=== PATIENT | male | born 1960 | race Two or more races ===

== ENCOUNTER 2020-12-03 09:00 | Outpatient (REF) | payer OTHER, SELFPAY ==
--- NOTE | ~2020-12-03 | XR_ITS ---
EXAMINATION: LEFT SHOULDER AND RIGHT HAND. CLINICAL INFORMATION: Pain. COMPARISON: None TECHNIQUE: Left shoulder 4 views. Right hand 3 views. FINDINGS: Left shoulder: There is no visible acute fracture, dislocation or subluxation seen. There is mild inferior.) Left AC joint. The soft tissues are normal. Right hand: There is no visible acute fracture, dislocation subluxation. The PIP, DIP and MCP joint spaces are maintained normal. No bony erosive changes seen. No visible fracture or loose bodies. The soft tissues are normal. XR/XR shoulder LT min 2V IMPRESSION: Mild degenerative changes left AC joint. Unremarkable right hand exam.
--- NOTE | ~2020-12-03 | XR_ITS ---
EXAMINATION: LEFT SHOULDER AND RIGHT HAND. CLINICAL INFORMATION: Pain. COMPARISON: None TECHNIQUE: Left shoulder 4 views. Right hand 3 views. FINDINGS: Left shoulder: There is no visible acute fracture, dislocation or subluxation seen. There is mild inferior.) Left AC joint. The soft tissues are normal. Right hand: There is no visible acute fracture, dislocation subluxation. The PIP, DIP and MCP joint spaces are maintained normal. No bony erosive changes seen. No visible fracture or loose bodies. The soft tissues are normal. XR/XR hand RT min 3V IMPRESSION: Mild degenerative changes left AC joint. Unremarkable right hand exam.
[2020-12-03 10:01] LABS: MANUAL DIFF FLAG NO
[2020-12-03 10:03] LABS: Basophils Percent Auto 0.6 % (0-2); Eosinophils Absolute Auto 0.3 X10*3/uL (0.0-0.4); Eosinophils Percent Auto 3.8 % (0-4); Hematocrit 43.4 % (42-52); Imm Gran Abs Auto 0.02 X10*3/uL (0.00-0.03); Imm Gran Pct Auto 0.3 % (0.0-0.4); Lymphocytes Absolute Auto 2.7 X10*3/uL (1.2-4.9); Lymphocytes Percent Auto 39.1 % (20-40); Mean Corpuscular HGB Conc 34.6 g/dl (31.0-36.0); Mean Corpuscular Hemoglobin 30.6 pg (27.0-33.0); Mean Corpuscular Volume 88.6 fL (80-98); Mean Platelet Volume 10.6 fL (9.4-12.4); Monocytes Absolute Auto 0.6 X10*3/uL (0.1-1.2); Neutrophils Absolute Auto 3.2 X10*3/uL (2.0-8.3); Neutrophils Percent Auto 47.2 % (45-73); Platelet Count 246 X10*3/uL (160-400); Red Cell Distribution Width 12.2 % (11.0-16.0); White Blood Count 6.8 X10*3/uL (4.8-10.8)
[2020-12-03 10:30] LABS: Alanine Aminotransferase 25 U/L (0-40); Albumin Level 4.3 g/dL (3.5-5.0); Alkaline Phosphatase 74 U/L (39-117); Anion Gap 13 (12-20); Aspartate Amino Transferase 29 U/L (5-37); Bilirubin Total 0.9 mg/dL (0.0-1.0); Blood Urea Nitrogen 15 mg/dL (9-16); Calcium 9.2 mg/dL (8.4-10.2); Carbon Dioxide 27 mmol/L (22-29); Chloride 106 mmol/L (96-108); Cholesterol 286 mg/dL; Estimated Glomerular Filt Rate > 60; Glucose Random 93 mg/dL (60-115); HDL Cholesterol 46 mg/dL; LDL Cholesterol Calculated 191 mg/dl; Potassium 4.4 mmol/L (3.3-5.1); Sodium 142 mmol/L (135-145); Total Protein 7.1 g/dL (6.5-8.0); Triglycerides 247 mg/dL
== END 2020-12-03 09:01 | disposition home or self-care (01) ==
LOC: HO.LAB 09:00
PROVIDERS: PCP Internal Medicine; Visit Provider Internal Medicine
DX: Z00.00 Encounter for general adult medical examination without abnormal findings (principal); Z12.5 Encounter for screening for malignant neoplasm of prostate; M25.511 Pain in right shoulder; M79.641 Pain in right hand
CPT/HCPCS: 36415; 73030; 73130; 80053; 80061; 84153; 85025

== ENCOUNTER → 2021-03-01 14:48 | Outpatient (BNVA) | payer OTHER, SELFPAY | PROVIDERS: PCP Internal Medicine; Visit Provider Physician Assistant | DX: M75.102 Unspecified rotator cuff tear or rupture of left shoulder, not specified as traumatic (principal) | CPT/HCPCS: J1040 ==

== ENCOUNTER 2021-03-18 07:33 | Day surgery (SDC) | payer OTHER, SELFPAY ==
[2021-03-18 07:50] VITALS: BP 132/84; PULSE 72; RESP 16; TEMP 36.9; O2SAT 97; BMI 31.3
--- NOTE | 2021-03-18 08:24 | P.CONAN_ITS ---
[facility] Active Problems Active Problems: All Active Problems (Updated 03/14/21 @ 15:18 by Bhavana nicholson, RN) Painful arc syndrome of left shoulder (Acute) Past Medical History Medical History (Updated 03/14/21 @ 15:18 by Bhavana Cooper, RN) Hyperlipidemia Left shoulder pain Cognitive capacity: grrr Surgical History Surgical History (Updated 03/14/21 @ 15:18 by Bhavana Cooper, RN) Hx of colonoscopy History of Problems with Anesthesia: No Social History Social History (Updated 03/01/21 @ 15:10 by Jean Thibodeaux) Patient Tobacco Use Status: Never used Tobacco Use of substances other than those prescribed or required for medical reasons: No Are you DNR?: No Advance Directives: No Advance Directives Information Provided: Yes Recently lost weight without trying: No Nutrition Risks: No Nutritional Risk Poor oral hygiene: No Current occupational status: employed 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 Meds Allergies Allergy/AdvReac Type Severity Reaction Status Date / Time No Known Allergies Allergy Verified 03/14/21 15:18 Active Medications: Current Medications Sodium Biphosphate/Sodium Phosphate (Sodium Phosphate,Swain-Dibasic 133 Ml Enema) 133 ml NC ONCE PRN PRN Reason: Poor Colonoscopy Prep Results Home Medications Medication Instructions Recorded Confirmed Last Taken Type atorvastatin 10 mg tablet 1 tab PO BEDTIME 03/14/21 03/14/21 Unknown History ibuprofen 600 mg tablet 600 mg PO TID PRN 03/14/21 03/14/21 Unknown History Exam Exam Date and Time: March 18, 2021 0824 Height,Weight and Vital Signs: Height 5 ft 7 in Weight 90.718 kg Last Vital Signs Temp 98.5 F 03/18/21 07:50 Pulse 72 03/18/21 07:50 Resp 16 03/18/21 07:50 BP 132/84 03/18/21 07:50 Pulse Ox 97 03/18/21 07:50 Airway Mallampati Class: II TM Dist: >3cm Neck ROM: Full Loose/Missing/Broken Teeth: No Heart: RRR Lungs: CTA Assessment and Plan Assessment Anesthesia Assessment: Anesthesia Plan Discussed and Chart Reviewed Final Anesthetic Review History of Problems with Anesthesia: No NPO: Yes ASA Class: II Final Preanesthetic Review: Meds/Allgs Chart Reviewed, Consent Obtained/Reviewed and Anes Risks/Benef Reviewed Patient Risk: Low Procedure Risk: Low Anesthetic Plan Anesthetic Plan: MAC: Disposition: Standard PACU
[2021-03-18 09:31] VITALS: BP 109/73; PULSE 65; RESP 16; TEMP 36.8; O2SAT 99
--- NOTE | 2021-03-18 09:31 | PM.OP ---
Brief Operative Note Date of Service: 03/18/21 Pre-op diagnosis: Screening Post-op diagnosis: other (Colon polyps) Procedure: Colonoscopy to the cecum with snare polypectomy, and bx/removal of polyps Surgeon: Doron Sneed Anesthesia: MAC Was an Investigative Research Specialist used for this Procedure?: No Estimated blood loss (mL): 3.0 Pathology: other (A. Rectal polyp B. Transverse colon polyp C. Polyp at 50cm) Condition: stable Disposition: PACU
[2021-03-18 09:46] VITALS: BP 117/81; PULSE 65; RESP 16; TEMP 36.8; O2SAT 100
--- NOTE | 2021-03-18 10:10 | OP_ITS ---
SURGEON: Doron Sneed MD INDICATIONS: The patient presents for evaluation of colorectal cancer screening. Full consent has been obtained from him for this, including risks of bleeding and perforation. PREOPERATIVE DIAGNOSIS: Colorectal cancer screening. POSTOPERATIVE DIAGNOSIS: PROCEDURE PERFORMED: ESTIMATED BLOOD LOSS: COMPLICATIONS: ANESTHESIA: Medication used, monitored anesthesia care. ASSISTANTS: SPECIMENS: POSTOPERATIVE DIAGNOSES: Colorectal cancer screening, colon polyps, diverticulosis, internal and external hemorrhoids. PROCEDURES PERFORMED: Colonoscopy to cecum with snare polypectomy and biopsy and removal of polyps. DESCRIPTION OF PROCEDURE: The patient was placed in the left lateral decubitus position. The digital rectal exam revealed external hemorrhoids. The Olympus video pediatric colonoscope was entered into the rectum and advanced to the cecum with the assistance of abdominal wall pressure. Once in the cecum, I did identify normal-appearing cecal pouch with appendiceal orifice and a normal-appearing ileocecal valve. The entire cecum and ileocecal valve appeared normal. The scope was then slowly withdrawn assessing all mucosal surfaces carefully. Preparation was excellent. In the transverse colon was an approximately 1.5 cm polyp on a short stalk, which was snared and recovered with the retrieval net. The scope was withdrawn from the patient. The scope was then readvanced back to the polypectomy site, which appeared clean, without any sign of residual polyp nor bleeding. At 50 cm was an approximately 4 mm polyp, which was biopsied and completely removed with cold biopsy forceps. In the rectum was a flat approximately 3 mm polyp, which was biopsied and completely removed with cold biopsy forceps. I did not visualize any other polyps, colitis, nor angiodysplasia. There was a mild amount of sigmoid diverticulosis. In the rectum, scope was retroflexed visualizing internal hemorrhoids, but no other pathology. The rectal mucosa appeared normal. The scope was straightened out and withdrawn from the patient. He tolerated the procedure well and was returned to the recovery area in stable condition. IMPRESSION: 1. Colon polyps, status post snare polypectomy, and biopsy removal. 2. Diverticulosis. 3. Internal and external hemorrhoids. PLAN: The results of the pathology will be checked. Given the larger polyp that was removed, I would recommend a repeat colonoscopy in 3 years for further screening and surveillance. He was advised not to use any aspirin and NSAIDs for 1 week. He will otherwise see me on a p.r.n. basis. MD NABEEL Ashton/TARA / [phone]
== END 2021-03-18 10:15 | disposition home or self-care (01) ==
PROVIDERS: PCP Internal Medicine; Visit Provider Internal Medicine
PROC: 0DJD8ZZ Inspection of Lower Intestinal Tract, Via Natural or Artificial Opening Endoscopic (ICD-10-PCS; CPT 45378; principal; 2021-03-18 09:10)
DX: Z12.11 Encounter for screening for malignant neoplasm of colon (principal); D12.3 Benign neoplasm of transverse colon; D12.6 Benign neoplasm of colon, unspecified; K62.1 Rectal polyp; K57.30 Diverticulosis of large intestine without perforation or abscess without bleeding; K64.8 Other hemorrhoids; K64.4 Residual hemorrhoidal skin tags
CPT/HCPCS: 45385; 45380; 88305; J2405; J2765

== ENCOUNTER → 2021-05-03 09:28 | Outpatient (BNVA) | payer OTHER, SELFPAY | PROVIDERS: PCP Internal Medicine; Visit Provider Physician Assistant ==

== ENCOUNTER 2021-06-16 11:00 | Outpatient (RCR) | payer OTHER, SELFPAY ==
--- NOTE | 2021-05-10 14:08 | MHC.PT.EP ---
[facility] [place] Office [place] Office [place] Office [address] [place] [address] [phone] F: [phone] F: [phone] F: [phone] F: [phone] Physical Therapy Plan of Care Date of Evaluation: Date of Surgery: N/A Diagnosis: rotator cuff tear, rupture Assessment: pt's signs and symptoms consistent w/ potential minimal RTC tearing, suspicious for subscapularis given greatest pain provocation w/ internal rotation vs. SAPS. pt presents to physical therapy with pain, decreased range of motion, decreased strength, impaired functional mobility, impaired postural awareness, and gait deviations. pt is a good candidate for skilled PT due to age, potential remediation of impairments, typical disease/condition progression and prognosis, comorbidities, and motivation. pt would benefit from tailored strengthening and stretching exercise program, functional training, gait training, postural re-training, neuromuscular re-education, modalities as needed for pain, equipment safety demonstration. Frequency and Duration: The patient will be seen 2x/wk for 4 wks Short Term Goals: pt will be I w/ HEP to promote self-management of condition. pt will demo proper sitting posture w/ lumbar roll to promote neutral spine and GH joint positioning w/ seated ADLs. Correction Goals: pt will report <3/10 L shoulder pain w/ lifting 20# object from floor to chest height x3 reps to promote pain limited return to work. pt will report <4/10 L shoulder pain w/ carrying groceries over 20' distance to promote return to PLOF. Treatment Plan: Modalities to reduce pain, spasms and effusion. Manual therapy to restore motion and function. Therapeutic exercise to improve strength and flexibility. Neuromuscular re-education for posture and balance. Therapeutic activities to return to functional activities of daily living. Electronically signed by: Barbara Robles PT, DPT Please sign and return to therapist. Thank you for your referral.
--- NOTE | 2021-07-04 10:40 | MHC.PT.DC ---
[facility] [place] Office [place] Office [place] Office [address] [place] [address] [facility] [phone] F: [phone] F: [phone] F: [phone] F: [phone] Physical Therapy Discharge Report Diagnosis: rotator cuff tear, rupture Date of Surgery: N/A Date of Evaluation: 05/10/21 Date of Discharge: 07/04/21 Treatments to Date: 5 Cancellations to Date: 4 No Shows to Date: 0 Discharge Status: Visit Non-compliance Discharge Summary: The patient has not been seen in this office for approximately three weeks. At his last appointment he was instructed to schedule more visits to finish out his physical therapy plan of care and we have not heard back from him since June 06, 2021. He overall was very hesitant to participate in physical therapy. He required significant encouragement to move his shoulder in an attempt to improve his symptoms. He felt the kinesiotape was helpful in reducing his pain. He is discharged from this physical therapy plan of care due to visit non-compliance. Electronically signed by: Barbara Robles PT, DPT Please sign and return to therapist. Thank you for your referral.
== END 2021-07-04 10:41 | disposition home or self-care (01) ==
LOC: HO.PT 11:00
PROVIDERS: Visit Provider Physician Assistant
DX: M75.102 Unspecified rotator cuff tear or rupture of left shoulder, not specified as traumatic (principal)
CPT/HCPCS: 97110; 97112; 97161

== ENCOUNTER → 2021-06-21 09:23 | Outpatient (BNVA) | payer OTHER, SELFPAY | PROVIDERS: PCP Internal Medicine; Visit Provider Physician Assistant ==

== ENCOUNTER 2021-07-01 15:33 | Outpatient (REF) | payer OTHER, SELFPAY ==
--- NOTE | ~2021-07-01 | MR_ITS ---
EXAMINATION: MRI SHOULDER WITHOUT CONTRAST, LEFT CLINICAL INFORMATION: Shoulder pain.. COMPARISON: X-ray 12/03/2020. TECHNIQUE: MRI of the shoulder without contrast is performed in a 1.5 Sophia high-field scanner. FINDINGS: CORACOACROMIAL ARCH: Mild acromioclavicular arthritis. Trace fluid in the subacromial subdeltoid space. Undersurface of the acromion is concave. ROTATOR CUFF: Mild supraspinatus tendinosis. 0.5 x 0.2 cm (AP x ML) intrasubstance tear in the insertional anterior fibers. Mild infraspinatus and subscapularis tendinosis. Teres minor is intact. ROTATOR CUFF MUSCLES: No muscle atrophy or fatty infiltration. BICEPS TENDON: Intact LABRUM/CAPSULE: No focal labral tear is seen. GLENOHUMERAL JOINT/MARROW: Cyst/cystic foci in the anterior humeral head, probably degenerative. No fracture. MR/MR shoulder LT wo con IMPRESSION: 1. Mild supraspinatus tendinosis. 0.5 x 0.2 cm intrasubstance tear. 2. Mild infraspinatus and subscapularis tendinosis. 3. Mild acromioclavicular arthritis.
== END 2021-07-01 15:34 | disposition home or self-care (01) ==
LOC: HO.MRI 15:33
PROVIDERS: PCP Internal Medicine; Visit Provider Physician Assistant
DX: M75.102 Unspecified rotator cuff tear or rupture of left shoulder, not specified as traumatic (principal)
CPT/HCPCS: 73221

== ENCOUNTER → 2021-07-15 12:43 | Outpatient (BNVA) | payer OTHER, SELFPAY | PROVIDERS: PCP Internal Medicine; Visit Provider Physician Assistant | DX: M75.102 Unspecified rotator cuff tear or rupture of left shoulder, not specified as traumatic (principal) | CPT/HCPCS: 20610; J1040 ==

== ENCOUNTER 2022-01-10 09:57 | Outpatient (REF) | payer OTHER, SELFPAY ==
[2022-01-12 23:06] LABS: TS Negative Control Passed; TS Panel A 0; TS Panel B 0; TS Positive Control Passed; TSpotTB Negative (Negative)
== END 2022-01-10 09:58 | disposition home or self-care (01) ==
LOC: HO.10HDL 09:57
PROVIDERS: Visit Provider Internal Medicine
DX: Z11.1 Encounter for screening for respiratory tuberculosis (principal)
CPT/HCPCS: 36415; 86481

== ENCOUNTER 2024-12-08 08:19 | Outpatient (AMB) | payer OTHER, SELFPAY ==
--- OUTSIDE RECORDS SUMMARY | 2024-12-08 08:28 | XMS_ITS | Patient Health Record ---
Author Organization [facility] Address [address] [place] [address] Care Team Providers Care Information Systems Security Manager Name Role Phone Anson Queen MD Primary Care Provider Doron Bradley [phone] Allergies No Known Allergies Reason For Referral No Information Medications Medication SIG (Take, Route, Frequency, Duration) Notes Start Date End Date Status Ibuprofen 600 MG 1 tablet with food o r milk as needed Orally Three times a day Active Atorvastatin Calcium 10 MG TAKE 1 TABLET BY MOUTH EVERY DAY AT NIGHT Oral for 90 Active Immunizations Vaccine Route Administration Date Status Comme nts Influenza Unknown 02/16/2021 Refused Social History Tobacco Use: Social History Observation Description Date Details (start date - stop date) Never Smoker NA - NA Tobacco Use/Smoking Question Answer Notes Patient is a nonsmoker Alcohol Screen Question Answer Notes Did you have a drink containing alcohol in the p ast year? No Points 0 Interpretation Negative Section Notes: Nonsmoker; no sig alcohol Problems Problem Type SNOMED Code ICD Code Onset Dates Problem Status W/U Status Risk Notes Problem 851847481 Encounter for screening for malignant neoplasm of colon (Z12.11) Active confirmed Problem [id number] Preprocedural examination (Z01.818) Active confirmed Problem Diverticulosis of colon (646200158) Diverticulosis of colon (K57.30) Active confirmed Plan Of Treatment Future Test Test Name Order Date COLONOSCOPY 02/16/2021 Insurance Providers Payer Name Payer Address Payer Phone Subscriber Number Group Number Insured Name Patient Relationship to Insured Coverage Start Date Coverage End Date [facility] [address] [place] [phone] [id number] NAVARRO L[place] Self - patient is the insured Medical (General) History Medical History History ICD Code Denies UT,DM,CVA,Lung disease,renal dise ase Negative colonoscopy at age 50 at [facility] Hyperlipidemia Left shoulder pain Surgical History Surgery Date(Month/Year) Hemorrhoids
--- NOTE | 2024-12-08 08:31 | MHC.PC.OV ---
Vital Signs 12/08/24 08:37 Height 5 ft 7 in Weight 88.451 kg BMI 30.5 BP 139/85 Pulse 74 Temp 96.0 F L Pulse Oximetry (%) 93 Intake Visit Reasons: Annual - see comments Associate Agent Insurance Sales Required: No Accompanied by: Self / Same As Patient Allergies No Known Allergies Allergy (Verified 07/15/21 12:47) Medication List - Last Reconciled 12/08/24 by TRINIDAD Jhaveri atorvastatin 1 tab PO BEDTIME ibuprofen 600 mg PO TID PRN meloxicam 15 mg PO DAILY 30 days Tobacco use date assessed: 12/08/24 Fall risk assessment: No Falls in past year Last assessed Fall Risk: 12/08/24 Dental Screening Dental Screen Date: 12/08/24 Did you have a dental visit in the last 12 months?: Yes Did you have a dental problem in the last 6 months where you did not have access to dental care?: No HPI HPI Comments History of Present Illness Details 64-year-old male with history of hyperlipidemia, external hemorrhoids presents to the office today for management of chronic conditions, to establish care, and for annual physical exam. He is currently living at home with his fiancee. 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 He consumes alcohol only about once monthly. No illicit drug use or marijuana use. Has never smoked cigarettes. Hyperlipidemia-on atorvastatin. Due for lipid panel. Last LDL 101 External hemorrhoids-ongoing for years. Did have banding performed several years ago and the MRI did fall off. However, has had recurrence. He is typically able to reduce these and they are intermittent. Does occasionally have some hematochezia. States for the last year, has not had any symptoms. No constipation but does endorse straining. Obesity class 1-not currently working on weight loss efforts Concerns: As above Health maintenance: Last colonoscopy 2020 with 3 year follow-up advised due to multiple tubular adenoma Due for screening PSA ROS: General: No fevers, malaise, unintentional weight loss HEENT: No blurred vision, diplopia. No sore throat, nasal congestion, rhinorrhea, sinus pain, ear pain Neck - no adenopathy Cardiovascular: No chest pain, palpitations, or leg edema Respiratory: No shortness of breath, wheezing, cough GI: No abdominal pain, nausea, vomiting, diarrhea, constipation, melena. see hpi : No dysuria, hematuria, increased urinary frequency, decreased urinary output MSK: No myalgia, back pain, arthralgias Neuro: No headaches, weakness, paresthesias Psych: no depression/anxiery. No AH/VH. No SI/HI Skin: No rashes or lesions EXAM: Constitutional - Awake and Alert, No apparent distress Eyes - PERRLA, EOMI. Anicteric Nose- septum midline, nares clear, no sinus tenderness Mouth/throat- mucosa moist, tongue and uvula midline, no erythema/edema or tonsillar adenopathy. Neck-trachea midline, thyroid symmetric without palpable nodules, no adenopathy Cardiovascular - S1S2, RRR, No edema Respiratory - Normal lung expansion, Normal respiratory effort, No respiratory distress, CTA bilaterally Gastrointestinal - NT / ND; +BS; No rebound or guarding - No CVA tenderness Extremities - no calf tenderness bilaterally, no swelling Musculoskeletal - Normal inspection, normal ROM Skin - Warm/Dry Neurological - Alert & oriented x3, CN II-XII in tact, 5/5 strength BUE and BLE Psychological - Appropriate affect [facility] Medical History (Updated 12/08/24 @ 09:00 by TRINIDAD Jhaveri) External hemorrhoids Tubular adenoma Left shoulder pain Hyperlipidemia Surgical History (Updated 12/04/24 @ 16:35 by Yue Pena) Hx of colonoscopy (~03/18/21) Social History Housing: House Patient Tobacco Use Status: Never used Tobacco e-Cigarette/Vaping Use: Never Used service: No Current occupational status: employed 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 1. Little interest or pleasure in doing things: not at all 2. Feeling down, depressed, or hopeless: not at all 3. Trouble falling or staying asleep, or sleeping too much: not at all 4. Feeling tired or having little energy: not at all 5. Poor appetite or overeating: not at all 6. Feeling bad about yourself - or that you are a failure or have let yourself or your family down: not at all 7. Trouble concentrating on things, such as reading the newspaper or watching television: not at all 8. Moving or speaking so slowly that other people could have noticed. Or the opposite - being so fidgety or restless that you have been moving around a lot more than usual: not at all Source: Developed by Drs. Doron Miller, Jluis Treviño and colleagues, with an educational asif from [employer]. Thrive Questionnaire Date Thrive assessed: 12/08/24 I am a: Patient Within the past 12 months, did the food you bought not last and you didn't have the money to get more?: Never true Within the past 12 months, did you worry whether your food would run out before you got money to buy more?: Never true Do you have trouble paying for medicines?: No Do you have trouble getting transportation to medical appointments?: No Do you have trouble paying your heating and electricity bill?: No Do you have trouble taking care of your child, family member or friend?: No Do you have trouble with day-to-day activities such as bathing, preparing meals, shopping, managing finances, etc.?: No Are you currently unemployed and looking for a job?: No Are you interested in more education?: No THRIVE Score: 0 AUDIT C Alcohol Use Questionnaire (AUDIT-C) 1. How often do you have a drink containing alcohol?: Never 3. How often do you have six or more drinks on one occasion?: Never Total Score: 0 SVETA-7 AMB Questionnaire SVETA-7 Date SVETA - 7 assessed: 12/08/24 Feeling nervous, anxious, or on edge: 0 = Not at all Not being able to stop or control worryin = Not at all Worrying too much about different things: 0 = Not at all Trouble relaxin = Not at all Being so restless that it is hard to sit still: 0 = Not at all Becoming easily annoyed or irritable: 0 = Not at all Feeling afraid as if something awful might happen: 0 = Not at all Total SVETA-7 score (0-4 normal; 5-9 mild; 10-14 moderate; 15-21 severe): 0 Source: Developed by Drs. Doron Miller, Maxine Viera, Jluis Gabriel and colleagues, with an educational asif from [employer]. Physical exam (Primary Care) Vital Signs: Last Vital Signs Temp 96.0 F L 12/08/24 08:37 Pulse 74 12/08/24 08:37 BP 139/85 12/08/24 08:37 Pulse Ox 93 12/08/24 08:37 BMI result Body Mass Index 30.5 Tobacco/Smoking Status: Tobacco use Status Tobacco use date assessed 12/08/24 12/08/24 08:35 Patient Tobacco Use Status Never used Tobacco 12/08/24 08:32 e-Cigarette/Vaping Use Never Used 12/08/24 08:35 Thrive Assessment: Date of Thrive Assessment Date Thrive assessed 12/08/24 12/08/24 08:38 Coding Level of Care Code Est Pt Level 4 (15663) New Pt Prev Care 40-64y(56198) Diagnoses Routine medical exam Z00.00 Hyperlipidemia E78.5 Tubular adenoma D36.9 External hemorrhoids K64.4 Assessment & Plan Assessment & Plan (1) Routine medical exam: Code(s): Z00.00 - Encounter for general adult medical examination without abnormal findings Plan: 64-year-old male presents for annual physical exam. Plan as below (2) Hyperlipidemia: Code(s): E78.5 - Hyperlipidemia, unspecified Category: Medical Plan: Lipid panel ordered. Continue atorvastatin, dose to be adjusted pending results of studies. Diet recommendations made (3) Tubular adenoma: Code(s): D36.9 - Benign neoplasm, unspecified site Category: Medical Plan: Overdue for colonoscopy. Referred (4) External hemorrhoids: Code(s): K64.4 - Residual hemorrhoidal skin tags Category: Medical Plan: Currently stable. Recommend avoidance of straining, recommend squatty potty or something similar. High-fiber diet and increase water intake for intermittent constipation. Handouts provided. Plan Routine screening labs as ordered below Continue with screening colonoscopies and PSA Continue following for annual skin exams and use sun protection Annual eye exams Wear seat belt in car Recommend regular exercise and healthy diet Follow up in 6m Orders: Orders Complete Blood Count Auto Diff Today Z00.00 - Encounter for general adult medical examination without abnormal findings Lipid Panel Today Z00.00 - Encounter for general adult medical examination without abnormal findings Liver Panel Today Z00.00 - Encounter for general adult medical examination without abnormal findings Prostate Specific Antigen Today Z00.00 - Encounter for general adult medical examination without abnormal findings Vitamin D 25-OH Total Today Z00.00 - Encounter for general adult medical examination without abnormal findings Basic Metabolic Panel Today Z00.00 - Encounter for general adult medical examination without abnormal findings Hemoglobin A1c Today Z00.00 - Encounter for general adult medical examination without abnormal findings Referrals Gastroenterology Referral D36.9 - Benign neoplasm, unspecified site, Z00.00 - Encounter for general adult medical examination without abnormal findings, Z12.11 - Encounter for screening for malignant neoplasm of colon
[2024-12-08 08:37] VITALS: BP 139/85; PULSE 74; TEMP 35.6; O2SAT 93; BMI 30.5
== END 2024-12-08 08:59 | disposition home or self-care (01) ==
LOC: HO.HMCHD 08:19
PROVIDERS: PCP Internal Medicine; Visit Provider Physician Assistant
DX: Z00.00 Encounter for general adult medical examination without abnormal findings (principal); E78.5 Hyperlipidemia, unspecified; D36.9 Benign neoplasm, unspecified site; K64.4 Residual hemorrhoidal skin tags

== ENCOUNTER 2024-12-08 09:19 | Outpatient (REF) | payer OTHER, SELFPAY ==
[2024-12-08 10:16] LABS: MANUAL DIFF FLAG NO
[2024-12-08 10:25] LABS: Basophils Percent Auto 0.6 % (0-2); Eosinophils Absolute Auto 0.2 X10*3/uL (0.0-0.4); Eosinophils Percent Auto 2.8 % (0-4); Hematocrit 46.5 % (42.0-52.0); Imm Gran Abs Auto 0.01 X10*3/uL (0.00-0.03); Imm Gran Pct Auto 0.2 % (0.0-0.4); Lymphocytes Percent Auto 30.6 % (20-40); Mean Corpuscular HGB Conc 34.4 g/dl (31.0-36.0); Mean Corpuscular Hemoglobin 30.6 pg (27.0-33.0); Mean Corpuscular Volume 88.9 fL (80.0-98.0); Mean Platelet Volume 9.9 fL (9.4-12.4); Monocytes Absolute Auto 0.7 X10*3/uL (0.1-1.2); Monocytes Percent Auto 10.6 % (2-11); Neutrophils Absolute Auto 3.6 x10*3/uL (2.0-8.3); Neutrophils Percent Auto 55.2 % (45-73); Platelet Count 271 X10*3/uL (160-400); Red Blood Count 5.23 X10*6/uL (4.60-5.80); Red Cell Distribution Width 12.3 % (11.0-16.0); White Blood Count 6.4 X10*3/uL (4.8-10.8)
[2024-12-08 10:43] LABS: Estimated Average Glucose 123 mg/dL; Hemoglobin A1C 164.8446 umol/L; Hemoglobin A1c % 5.9 % (<6.0)
[2024-12-08 11:02] LABS: Prostate Specific Antigen 1.22 ng/mL (<0.05-4.0)
[2024-12-08 11:12] LABS: Alanine Aminotransferase 30 U/L (0-40); Albumin Level 4.8 g/dL (3.5-5.0); Alkaline Phosphatase 76 U/L (39-117); Anion Gap 11 (12-20); Aspartate Amino Transferase 38 U/L (5-37); Bilirubin Direct 0.3 mg/dL (0.0-0.5); Bilirubin Total 1.2 mg/dL (0.0-1.0); Blood Urea Nitrogen 19 mg/dL (9-16); Calcium 9.7 mg/dL (8.4-10.2); Carbon Dioxide 28 mmol/L (22-29); Chloride 106 mmol/L (96-108); Cholesterol 327 mg/dL (<200); Estimated Glomerular Filt Rate 51; Glucose Random 118 mg/dL (60-115); HDL Cholesterol 55 mg/dL (>40); LDL Cholesterol Calculated 236 mg/dL (<100); Potassium 4.4 mmol/L (3.3-5.1); Sodium 141 mmol/L (135-145); Total Protein 7.8 g/dL (6.5-8.0); Triglycerides 183 mg/dL (<150); Vitamin D 25-OH Total 40.4 ng/mL (>30)
== END 2024-12-08 09:20 | disposition home or self-care (01) ==
LOC: HO.10HDL 09:19
PROVIDERS: Visit Provider Physician Assistant
DX: Z00.00 Encounter for general adult medical examination without abnormal findings (principal); Z13.0 Encounter for screening for diseases of the blood and blood-forming organs and certain disorders involving the immune mechanism; Z13.1 Encounter for screening for diabetes mellitus; Z13.220 Encounter for screening for lipoid disorders; Z13.228 Encounter for screening for other metabolic disorders; Z12.5 Encounter for screening for malignant neoplasm of prostate
CPT/HCPCS: 36415; 80048; 80061; 80076; 82306; 83036; 84153; 85025

== ENCOUNTER 2025-06-08 07:56 | Outpatient (AMB) | payer OTHER, SELFPAY ==
--- OUTSIDE RECORDS SUMMARY | 2025-06-08 08:01 | XMS_ITS | Patient Health Record ---
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 Section Notes: Nonsmoker; no sig alcohol Nonsmoker; no sig alcohol Problems Problem Type SNOMED Code ICD Code Onset Dates Problem Status W/U Status Risk Notes Problem Colon cancer screening (918744634) Colon cancer screening (Z12.11) Active confirmed Problem Screening for malignant neoplasm of colon (349628794) Encounter for screening for malignant neoplasm of colon (Z12.11) Active confirmed Problem Preprocedural examination (500153689424138) Preprocedural examination (Z01.818) Active confirmed Problem Diverticulosis of colon (692085554) Diverticulosis of colon (K57.30) Active confirmed Problem History of adenomatous polyp of colon (861183214) History of adenomatous polyp of colon (Z86.0101) Active confirmed Vital Signs Temperature 98.6 degrees Fahrenheit 04/01/2025 Blood pressure diastolic 01 mm Hg 04/01/2025 Height 67 in 04/01/2025 Blood pressure systolic 001 mm Hg 04/01/2025 Weight 194.6 lbs 04/01/2025 BMI 30.48 kg/m2 04/01/2025 Procedures Procedure Date Ordered Date Performed Result Body Sit e COLONOSCOPY 04/01/2025 N/A Encounters Encounter Location Date Provider Diagnosis [facility] [address] [place] [address] 04/01/2025 Doron Sneed History of adenomato us [...] Appt Details Provider Name:Doron Sneed , 06/15/2025 11:50:00 AM, [address] [place] [address] , [place], [place], [phone], Insurance Providers Payer Name Payer Address Payer Phone Subscriber Number Group Number Insured Name Patient Relationship to Insured Coverage Start Date Coverage End Date [facility] [address] [place] [phone] [id number] NAVARRO LAND Self - patient is the insured Medical (General) History Medical History History ICD Code Denies NC,DM,CVA,Lung disease,renal dise ase Negative colonoscopy at age 50 at [facility] [facility] [employer] [facility] [place] by his report Hyperlipidemia Left shoulder pain Colonoscopy 03/2021 with a 1 .5cm tubular adenoma removed and a <5mm adenoma removed, and 1 hyperplastic polyp Surgical History Surgery Date(Month/Year) Hemorrhoids
--- NOTE | 2025-06-08 08:03 | A.OFFPC_ITS ---
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 Hyperlipidemia-on atorvastatin 80mg daily. Due for lipid panel. Last LDL 236 External hemorrhoids-ongoing for years. Did have banding performed several years ago and the MRI did fall off. However, has had recurrence. He is typically able to reduce these and they are intermittent. Does occasionally have some hematochezia. States for the last year, has not had any symptoms. No constipation but does endorse straining. Obesity class 1-not currently working on weight loss efforts Concerns: Throat irritation x 2 weeks. Fatigue. Dayquil, Nyquil. Now with chest congestion/nasal congestion. Continues with dry cough, . Health maintenance: Last colonoscopy 2020 with 3 year follow-up advised due to multiple tubular adenoma. [facility] 06/15 Due for screening PSA ROS: see hpi EXAM: Constitutional - Awake and Alert, No apparent distress Eyes - PERRL Cardiovascular - S1S2, RRR, No edema Respiratory - Normal lung expansion, Normal respiratory effort, No respiratory distress, CTA bilaterally Extremities - no calf tenderness bilaterally, no swelling Skin - Warm/Dry Neurological - Alert & oriented x3 Psychological - Appropriate affect PFSH Medical History (Updated 06/08/25 @ 08:18 by TRINIDAD Jhaveri) Prediabetes External hemorrhoids Tubular adenoma Left shoulder pain Hyperlipidemia Surgical History (Updated 12/04/24 @ 16:35 by Yue Pena) Hx of colonoscopy (~03/18/21) Social History Housing: House Patient Tobacco Use Status: Never used Tobacco e-Cigarette/Vaping Use: Never Used service: No Current occupational status: employed 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 How many drinks containing alcohol do you have on a typical day when you are drinking?: 1 or 2 3. How often do you have six or more drinks on one occasion?: Never Total Score: 0 SVETA-7 AMB Questionnaire SVETA-7 Date SVETA - 7 assessed: 12/08/24 Source: Developed by Drs. Doron Miller, Maxine Viera, Jluis Gabriel and colleagues, with an educational asif from [employer]. Physical exam (Primary Care) Tobacco/Smoking Status: Tobacco use Status Tobacco use date assessed 12/08/24 06/08/25 08:04 Patient Tobacco Use Status Never used Tobacco 06/08/25 08:04 e-Cigarette/Vaping Use Never Used 06/08/25 08:04 Thrive Assessment: Date of Thrive Assessment Date Thrive assessed 12/08/24 06/08/25 08:04 Coding Level of Care Code Est Pt Level 4 (94502) Add On Problem Visit Only Diagnoses Viral URI J06.9 Hyperlipidemia E78.5 Prediabetes R73.03 Assessment & Plan Assessment & Plan (1) Viral URI: Code(s): J06.9 - Acute upper respiratory infection, unspecified Category: Medical Plan: Increase fluids, rest, symptomatic treatments. Robitussin, throat lozenges, Add claritin and flonase (2) Hyperlipidemia: Code(s): E78.5 - Hyperlipidemia, unspecified Category: Medical Plan: Check fasting lipid profile. Continue atorvastatin (3) Prediabetes: Code(s): R73.03 - Prediabetes Category: Medical Plan: Last A1c 5.9%. Recommend diet low in sugars and simple carbohydrates as well as highly processed foods. Continue working on weight loss efforts Plan Follow-up in the office in 6 months. Labs as ordered today
[2025-06-08 08:14] VITALS: BP 110/62; PULSE 70; RESP 18; TEMP 36.5; O2SAT 97; BMI 30.8
== END 2025-06-08 08:34 | disposition home or self-care (01) ==
LOC: HO.HMCHD 07:57
PROVIDERS: PCP Physician Assistant; Visit Provider Physician Assistant
DX: J06.9 Acute upper respiratory infection, unspecified (principal); E78.5 Hyperlipidemia, unspecified; R73.03 Prediabetes

== ENCOUNTER 2025-06-15 09:26 | Outpatient (REF) | payer OTHER, SELFPAY ==
--- OUTSIDE RECORDS SUMMARY | 2025-06-15 09:56 | XMS_ITS | Patient Health Record ---
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 at [employer] Section Notes: Nonsmoker; no sig alcohol Nonsmoker; no sig alcohol Problems Problem Type SNOMED Code ICD Code Onset Dates Problem Status W/U Status Risk Notes Problem Colon cancer screening (081041607) Colon cancer screening (Z12.11) Active confirmed Problem Screening for malignant neoplasm of colon (368983326) Encounter for screening for malignant neoplasm of colon (Z12.11) Active confirmed Problem Preprocedural examination (047591179358354) Preprocedural examination (Z01.818) Active confirmed Problem Diverticulosis of colon (404733334) Diverticulosis of colon (K57.30) Active confirmed Problem History of adenomatous polyp of colon (501415385) History of adenomatous polyp of colon (Z86.0101) Active confirmed Vital Signs Temperature 98.6 degrees Fahrenheit 04/01/2025 Blood pressure diastolic 01 mm Hg 04/01/2025 Height 67 in 04/01/2025 Blood pressure systolic 001 mm Hg 04/01/2025 Weight 194.6 lbs 04/01/2025 BMI 30.48 kg/m2 04/01/2025 Procedures Procedure Date Ordered Date Performed Result Body Sit e COLONOSCOPY 04/01/2025 N/A Encounters Encounter Location Date Provider Diagnosis [facility] [address] [place] [address] 04/01/2025 Doron Sneed History of adenomato us [...] Appt Details Provider Name:Doron Sneed , 06/15/2025 10:40:00 AM, [address] [place] [address] , [place], [place], [phone], Insurance Providers Payer Name Payer Address Payer Phone Subscriber Number Group Number Insured Name Patient Relationship to Insured Coverage Start Date Coverage End Date [facility] [address] [place] [phone] [id number] NAVARRO LAND Self - patient is the insured Medical (General) History Medical History History ICD Code Denies SD,DM,CVA,Lung disease,renal dise ase Negative colonoscopy at age 50 at [facility] [place] by his report Hyperlipidemia Left shoulder pain Colonoscopy 03/2021 with a 1 .5cm tubular adenoma removed and a <5mm adenoma removed, and 1 hyperplastic polyp Surgical History Surgery Date(Month/Year) Hemorrhoids
[2025-06-15 10:30] LABS: Alanine Aminotransferase 48 U/L (0-40); Albumin Level 4.7 g/dL (3.5-5.0); Alkaline Phosphatase 93 U/L (39-117); Aspartate Amino Transferase 37 U/L (5-37); Cholesterol 249 mg/dL (<200); HDL Cholesterol 40 mg/dL (>40); Total Protein 7.7 g/dL (6.5-8.0); Triglycerides 404 mg/dL (<150)
== END 2025-06-15 09:27 ==
LOC: HO.LAB 09:26
PROVIDERS: PCP Physician Assistant; Visit Provider Physician Assistant
DX: R73.03 Prediabetes (principal); E78.5 Hyperlipidemia, unspecified; R74.8 Abnormal levels of other serum enzymes
CPT/HCPCS: 36415; 80061; 80076; 83036

== ENCOUNTER 2025-06-15 09:43 | Day surgery (SDC) | payer OTHER, SELFPAY ==
--- OUTSIDE RECORDS SUMMARY | 2025-05-07 19:07 | XMS_ITS | Patient Health Record ---
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 Name Role Phone AMBAR ALTAMIRANO Primary Care Provider Doron Chavarria [phone] Allergies No Known Allergies Reason For Referral No Information Medications Medication SIG (Take, Route, Frequency, Duration) Notes Start Date End Date Status Atorvastatin Calcium 80 MG Tablet Oral; Duration: 90 Days Acti ve Immunizations Vaccine Route Administration Date Status Comme nts Influenza Unknown 02/16/2021 Refused Social History Tobacco Use: Social History Observation Description Date Details (start date - stop date) Never Smoker NA - NA Social History Drugs/Alcohol: Social Info Question Answer Notes Alcohol Screen Did you have a drink containing alcohol in the past year? 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 [employer] Section Notes: Nonsmoker; no sig alcohol Nonsmoker; no sig alcohol Problems Problem Type SNOMED Code ICD Code Onset Dates Problem Status W/U Status Risk Notes Problem Colon cancer screening (721852193) Colon cancer screening (Z12.11) Active confirmed Problem Screening for malignant neoplasm of colon (466545814) Encounter for screening for malignant neoplasm of colon (Z12.11) Active confirmed Problem Preprocedural examination (007261788243912) Preprocedural examination (Z01.818) Active confirmed Problem Diverticulosis of colon (450697851) Diverticulosis of colon (K57.30) Active confirmed Problem History of adenomatous polyp of colon (961854486) History of adenomatous polyp of colon (Z86.0101) Active confirmed Vital Signs Temperature 98.6 degrees Fahrenheit 04/01/2025 Blood pressure diastolic 01 mm Hg 04/01/2025 Height 67 in 04/01/2025 Blood pressure systolic 001 mm Hg 04/01/2025 Weight 194.6 lbs 04/01/2025 BMI 30.48 kg/m2 04/01/2025 Procedures Procedure Date Ordered Date Performed Result Body Sit e COLONOSCOPY 04/01/2025 N/A Encounters Encounter Location Date Provider Diagnosis [facility] [address] [place] [address] 04/01/2025 Doron Sneed History of adenomato us polyp of colon Z86.0101 ; Preprocedural examination Z01.818 and Colon cancer screening Z12.11 Assessments Encounter Date Diagnosis (ICD Code) Assessment Notes Treatment Notes Treatment Clinical Notes Section Notes 04/01/2025 Preprocedural examination (ICD-10 - Z01.818) Overall, Navarro appears quite well. Given his age, good clinical appearance, and his history of a sizable tubular adenoma removed 4 years ago, I did recommend a follow-up colonoscopy for further screening purposes. We did review the rationale for that in regard to colon cancer prevention. Full consent has been taken for this, including risks of bleeding and perforation. The procedure will be done with monitored anesthesia care. Navarro was comfortable with this plan. Thank you again for allowing me to participate in Navarro's care. I shall continue to keep you advised of his progress. 04/01/2025 History of adenomatous polyp of colon (ICD-10 - Z86.0101) Overall, Navarro appears quite well. Given his age, good clinical appearance, and his history of a sizable tubular adenoma removed 4 years ago, I did recommend a follow-up colonoscopy for further screening purposes. We did review the rationale for that in regard to colon cancer prevention. Full consent has been taken for this, including risks of bleeding and perforation. The procedure will be done with monitored anesthesia care. Navarro was comfortable with this plan. Thank you again for allowing me to participate in Navarro's care. I shall continue to keep you advised of his progress. 04/01/2025 Colon cancer screening (ICD-10 - Z12.11) Overall, Navarro appears quite well. Given his age, good clinical appearance, and his history of a sizable tubular adenoma removed 4 years ago, I did recommend a follow-up colonoscopy for further screening purposes. We did review the rationale for that in regard to colon cancer prevention. Full consent has been taken for this, including risks of bleeding and perforation. The procedure will be done with monitored anesthesia care. Navarro was comfortable with this plan. Thank you again for allowing me to participate in Navarro's care. I shall continue to keep you advised of his progress. Plan Of Treatment Pending Test Test Name Order Date COLONOSCOPY 04/01/2025 Future Test Test Name Order Date COLONOSCOPY 02/16/2021 Next Appt Details Provider Name:Doron Sneed , 06/15/2025 01:40:00 PM, [address] [place] [address] , [place], [place], [phone], Insurance Providers Payer Name Payer Address Payer Phone Subscriber Number Group Number Insured Name Patient Relationship to Insured Coverage Start Date Coverage End Date [facility] [address] [place] [phone] [id number] NAVARRO LAND Self - patient is the insured Medical (General) History Medical History History ICD Code Denies VA,DM,CVA,Lung disease,renal dise ase Negative colonoscopy at age 50 at [facility] [place] by his report Hyperlipidemia Left shoulder pain Colonoscopy 03/2021 with a 1 .5cm tubular adenoma removed and a <5mm adenoma removed, and 1 hyperplastic polyp Surgical History Surgery Date(Month/Year) Hemorrhoids
--- NOTE | 2025-06-09 13:27 | P.CONAN_ITS ---
Documented by User: Krys Miller NP 06/09/25 13:27 HPI - Anesthesia Eval Consult details Narrative: 65yo M for Colonoscopy PMFSH Active Problems Active Problems: All Active Problems Viral URI (Acute) Prediabetes (Acute) Elevated liver enzymes (Acute) External hemorrhoids (Acute) Tubular adenoma (Acute) Hyperlipidemia (Acute) Painful arc syndrome of left shoulder (Acute) Past Medical History Medical History (Updated 06/08/25 @ 08:18 by TRINIDAD Jhaveri) Prediabetes External hemorrhoids Tubular adenoma Left shoulder pain Hyperlipidemia Surgical History Surgical History (Updated 06/10/25 @ 11:17 by Serenity Jenkins, RN) Hx of colonoscopy (03/18/21) History of Problems with Anesthesia: No Social History Social History Housing: House Patient Tobacco Use Status: Never used Tobacco e-Cigarette/Vaping Use: Never Used Use of substances other than those prescribed or required for medical reasons: No Advance Directives: No Advance Directives Information Provided: Yes service: No Current occupational status: employed 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 Cognitive needs: No Hearing needs: No Vision needs: No Meds Allergies Allergy/AdvReac Type Severity Reaction Status Date / Time No Known Allergies Allergy Verified 06/15/25 10:10 Assessment and Plan Assessment Anesthesia Assessment: Chart Reviewed Final Anesthetic Review History of Problems with Anesthesia: No Documented by User: Bayron Abarca MD 06/15/25 11:01 [facility] Past Medical History Medical History (Updated 06/08/25 @ 08:18 by TRINIDAD Jhaveri) Prediabetes External hemorrhoids Tubular adenoma Left shoulder pain Hyperlipidemia Family History Family history of problems with anesthesia: No Surgical History Surgical History (Updated 06/10/25 @ 11:17 by Serenity Jenkins RN) Hx of colonoscopy (03/18/21) History of Problems with Anesthesia: No Social History Social History Housing: House Patient Tobacco Use Status: Never used Tobacco e-Cigarette/Vaping Use: Never Used Use of substances other than those prescribed or required for medical reasons: No Advance Directives: No Advance Directives Information Provided: Yes service: No Current occupational status: employed 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
[2025-06-10 11:16] VITALS: BMI 30.4
[2025-06-15 10:11] VITALS: BMI 29.5
[2025-06-15 10:13] VITALS: BP 125/79; PULSE 67; RESP 18; TEMP 36.1; O2SAT 97
[2025-06-15] MEDS: Lactated Ringers 1,000 ML 100 ML IVCONT (10:24)
[2025-06-15 12:20] VITALS: BP 103/63; PULSE 65; RESP 20; TEMP 36.1; O2SAT 94
--- NOTE | 2025-06-15 12:28 | PM.OP ---
Brief Operative Note Date of Service: 06/15/25 Pre-op diagnosis: Screening Post-op diagnosis: other (Polyp) Procedure: Colonoscopy to the cecum with bx/removal of polyp Surgeon: Doron Sneed MD Anesthesia: MAC Was an Farm Or Ranch Animal Caretaker used for this Procedure?: No Estimated blood loss (mL): 2.0 Pathology: other (A. Polyp at 50cm) Condition: stable Disposition: PACU
[2025-06-15 12:32] VITALS: BP 102/75; PULSE 67; RESP 16; O2SAT 96
[2025-06-15 12:45] VITALS: BP 118/70; PULSE 62; RESP 16; TEMP 36.1; O2SAT 96
--- NOTE | 2025-06-15 13:11 | OP_ITS ---
DATE OF SERVICE: 06/15/2025 SURGEON: Doron Sneed MD INDICATIONS: The patient presents for followup of colorectal cancer screening and personal history of tubular adenoma of the colon. Full consent has been obtained from him for this, including risks of bleeding and perforation. PREOPERATIVE DIAGNOSIS: POSTOPERATIVE DIAGNOSIS: PROCEDURE PERFORMED: Colonoscopy to cecum with biopsy and removal of polyp. ESTIMATED BLOOD LOSS: COMPLICATIONS: ANESTHESIA: Medication used, monitored anesthesia care. ASSISTANTS: SPECIMENS: PREOPERATIVE DIAGNOSES: Colorectal cancer screening, personal history of tubular adenoma of the colon. POSTOPERATIVE DIAGNOSES: Colorectal cancer screening, personal history of tubular adenoma of the colon, small colon polyp, diverticulosis, and internal hemorrhoids. DESCRIPTION OF PROCEDURE: The patient was placed in left lateral decubitus position. The digital rectal exam revealed no abnormalities. The Olympus video pediatric colonoscope was entered into the rectum and advanced easily to the cecum. Once in the cecum, I did identify normal-appearing cecal pouch with appendiceal orifice and a normal-appearing ileocecal valve. The entire cecum and ileocecal valve appeared normal. The scope was slowly withdrawn assessing all mucosal surfaces carefully. Preparation was excellent. At 50 cm, there was a flat, approximately 3 or 4 mm polyp, which was biopsied and removed completely with cold biopsy forceps. I did not visualize any other polyps, colitis, nor angiodysplasia. There was a mild amount of sigmoid diverticulosis. In the rectum, scope was retroflexed visualizing internal hemorrhoids, but no other pathology. The rectal mucosa appeared normal. Scope was straightened and withdrawn from the patient. He tolerated the procedure well and was returned to the recovery area in stable condition. IMPRESSION: 1. Small colon polyp. 2. Diverticulosis. 3. Internal hemorrhoids. PLAN: The results of the pathology will be checked. I would recommend a repeat colonoscopy in 5 years for further screening and surveillance. He will otherwise see me as needed. Doron Sneed MD RMW/OKSANAL / [id number]
== END 2025-06-15 13:04 | disposition home or self-care (01) ==
PROVIDERS: PCP Physician Assistant; Visit Provider Internal Medicine
PROC: 0DJD8ZZ Inspection of Lower Intestinal Tract, Via Natural or Artificial Opening Endoscopic (ICD-10-PCS; CPT 45378; principal; 2025-06-15 11:20)
DX: Z12.11 Encounter for screening for malignant neoplasm of colon (principal); Z86.0101 Personal history of adenomatous and serrated colon polyps; K57.30 Diverticulosis of large intestine without perforation or abscess without bleeding; K64.8 Other hemorrhoids; K63.5 Polyp of colon
CPT/HCPCS: 45380; 88305; J2003; J2250; J2704